=== PATIENT | female | born 1945 | race Caucasian/White ===

== ENCOUNTER 2019-01-30 15:54 | Emergency (ER) | payer MEDICARE ==
[~2019-01-30] VITALS: Ht 160 cm; Wt 81.2 kg
[2019-01-30 15:57] VITALS: BP_SYST 148
--- NOTE | 2019-01-30 16:00 | NUR ---
Patient to ER bed 08 to gown for evaluation. Side rails up.
--- NOTE | 2019-01-30 16:05 | NUR ---
Pt AAOx4 ambulated into ED c/o 05/03 pain to R wrist and R knee s/p mechanical trip and fall on concrete prior to arrival. Deformity noted to R wrist. Denies KO/N/V/blurred vision. No other injuries/complaints per pt/noted. Will continue to monitor.
--- NOTE | 2019-01-30 16:15 | NUR ---
ER Dr. Harris at bedside examining patient.
[2019-01-30] MEDS ORDERED: KETOROLAC TROMETHAMINE 60 MG/2 ML VIAL IM ONE (16:45)
--- NOTE | 2019-01-30 17:20 | NUR ---
Long arm splint applied to R arm. Placed in shoulder immoblizer. Pt tolerated well. No adverse reactions noted.
[2019-01-30 17:37] VITALS: BP_SYST 139
--- NOTE | 2019-01-30 17:37 | NUR ---
Patient given written and verbal discharge instructions and verbalizes understanding. ER MD Harris discussed with patient the results and treatment provided. Patient in stable condition. ID arm band removed. Patient educated on pain management and to follow up with PMD. Pain Scale 0. Opportunity for questions provided and answered. Medication side effect fact sheet provided.
== END 2019-01-30 17:37 | disposition home or self-care (01) ==
LOC: SED 15:54
DX: S52.501A Unspecified fracture of the lower end of right radius, initial encounter for closed fracture (principal); F17.210 Nicotine dependence, cigarettes, uncomplicated; E11.9 Type 2 diabetes mellitus without complications; I10 Essential (primary) hypertension; Z90.49 Acquired absence of other specified parts of digestive tract; W01.198A Fall on same level from slipping, tripping and stumbling with subsequent striking against other object, initial encounter; Y93.89 Activity, other specified; Y92.89 Other specified places as the place of occurrence of the external cause; Y99.8 Other external cause status
CPT/HCPCS: 29105; 73110; 73564; 96372; 99283; J1885

== ENCOUNTER 2021-10-04 11:18 | Emergency (ER) | payer MEDICARE, OTHER, SELFPAY ==
[~2021-10-04] VITALS: Ht 162.6 cm; Wt 63.5 kg
[2021-10-04 11:18] VITALS: BP_SYST 156
--- NOTE | 2021-10-04 11:18 | NUR ---
BROUGHT IN BY [facility], PLACED IN BED #1 AND TRIAGED. REPORT GIVEN TO AYAZ
--- NOTE | 2021-10-04 11:33 | NUR ---
76 years old female biba FROM home after mechanical fall awaiting for x-ray.
[2021-10-04 12:41] LABS: ACETONE, SERUM NEGATIVE (NEGATIVE)
[2021-10-04 12:46] LABS: ANION GAP 7 (5-15); CHLORIDE 104 mmol/L (98-107); CREATININE 0.64 mg/dL (0.55-1.30); GLUCOSE 67 mg/dL (70-99); POTASSIUM 4.3 mmol/L (3.5-5.1); SODIUM SERUM 140 mmol/L (136-145); UREA NITROGEN, BLOOD 14 mg/dL (8-21)
[2021-10-04 12:50] LABS: BASOPHILS % (AUTO) 0.6 % (0.0-2.0); EOSINOPHILS # (AUTO) 0.1 K/uL (0.0-0.4); EOSINOPHILS % (AUTO) 1.9 % (0.0-4.0); HEMATOCRIT 38.7 % (36-48); HEMOGLOBIN 12.8 g/dL (12.0-16.0); LYMPHOCYTES % (AUTO) 29.4 % (20.5-51.5); MEAN CORPUSCULAR HEMOGLOBIN 30 pg (27-31); MEAN CORPUSCULAR HGB CONC 33 % (32-36); MEAN CORPUSCULAR VOLUME 91 fL (79.0-98.0); MONOCYTES # (AUTO) 0.5 K/uL (0.0-1.0); MONOCYTES % (AUTO) 7.6 % (1.7-9.3); NEUTROPHILS # (AUTO) 4.2 K/uL (1.8-7.7); NEUTROPHILS % (AUTO) 60.5 % (40.0-70.0); PLATELET COUNT (AUTO) 183 K/uL (130-430); RED BLOOD CELL COUNT(AUTO) 4.27 MIL/uL (4.2-6.2); RED CELL DISTRIBUTION WIDTH 12.7 % (9.0-15.0); WHITE BLOOD COUNT (AUTO) 6.9 K/uL (4.8-10.8)
[2021-10-04 12:51] LABS: ALANINE AMINOTRANSFERASE 39 U/L (12-78); ALBUMIN 3.2 g/dL (3.4-4.8); ASPARTATE AMINOTRANSFERASE 20 U/L (10-37); TOTAL BILIRUBIN 0.2 mg/dL (0.0-1.0)
--- NOTE | 2021-10-04 13:24 | NUR ---
urine/covid swab collected/sent.
--- NOTE | 2021-10-04 13:51 | NUR ---
Dr. Xie, [place] [facility] DOc, called back to speak to Dr. Osorio regarding pt status.
[2021-10-04 13:54] LABS: BILIRUBIN,URINE NEGATIVE (NEGATIVE); BLOOD, URINE NEGATIVE (NEGATIVE); CLARITY/URINE CLEAR (CLEAR); COLOR,URINE YELLOW (YELLOW); GLUCOSE,URINE NEGATIVE (NEGATIVE); KETONES,URINE NEGATIVE (NEGATIVE); LEUKOCYTE ESTERASE ,URINE NEGATIVE (NEGATIVE); NITRITE, URINE NEGATIVE (NEGATIVE); PH,URINE 8.5 (5.0-8.0); PROTEIN URINE NEGATIVE (NEGATIVE); UROBILINOGEN,URINE 0.2 (0.2-1.0)
--- NOTE | 2021-10-04 14:23 | NUR ---
patient reassess no acute changes awaiting for [facility] transfer.
--- NOTE | 2021-10-04 14:49 | NUR ---
juice, apple sauce given tolerated well.
--- NOTE | 2021-10-04 16:33 | NUR ---
TRANSFER INFO [facility], Dr. [phone] BLS ETA 1730 SPOKE TO MARKUS
[2021-10-04 17:15] VITALS: BP_SYST 146
--- NOTE | 2021-10-04 17:24 | NUR ---
SPOKE WITH THE FAMILY AND INFORMATION ON TRANSPORT GIVEN, THEY WILL BE COMING TO SEE PT BEFORE SHE LEAVES.
--- NOTE | 2021-10-04 17:30 | NUR ---
patient will transfer to [facility] accepting Md Dr Joshi report given to nurse Bhavani all questions answered. awaiting for ambulance transfer.
--- NOTE | 2021-10-04 17:31 | NUR ---
Patient to be transferred to [facility]. Is being transferred due to higher level of care. Receiving facility has accepting physician and available space. ER physician has signed transfer form. Patient or responsible democrat has agreed to transfer and signed form. Patient belongings inventoried and will be sent with patient. Copy of nursing notes, lab reports, EKG, Physicians Orders and X-rays to be sent with patient. Report called to at receiving facility. Receiving physician is . ambulance service has been called for transfer. ETA is .[facility] scheduled ambulance service.
--- NOTE | 2021-10-04 17:51 | NUR ---
patient left er with [facility] BLS.
== END 2021-10-04 17:15 | disposition short-term general hospital (02) ==
LOC: SED 11:18
DX: M25.551 Pain in right hip (principal); M25.571 Pain in right ankle and joints of right foot; E11.9 Type 2 diabetes mellitus without complications; I10 Essential (primary) hypertension; F03.90 Unspecified dementia, unspecified severity, without behavioral disturbance, psychotic disturbance, mood disturbance, and anxiety; Z20.822 Contact with and (suspected) exposure to COVID-19; W10.8XXA Fall (on) (from) other stairs and steps, initial encounter; Y93.89 Activity, other specified; Y92.89 Other specified places as the place of occurrence of the external cause; Y99.8 Other external cause status
CPT/HCPCS: 36415; 71045; 72192-TC; 73502; 76376; 80053; 81003; 82009; 82550; 82962; 83605; 85025; 93005; 99285